=== PATIENT | male | born 1965 | race Caucasian/White ===

== ENCOUNTER 2021-07-31 06:06 | Outpatient (CLI) | payer MEDICARE ==
[~2021-07-31] VITALS: Ht 175.3 cm; Wt 105.6 kg
[2021-07-31] MEDS ORDERED: TERA5CAP10 PO (12:18)
[2021-07-31] MEDS ORDERED: CETI10CA PO (12:18)
[2021-07-31] MEDS ORDERED: OMEG-109 PO (12:18)
[2021-07-31] MEDS ORDERED: LEVE500T6 PO (12:18)
[2021-07-31] MEDS ORDERED: TRAZ150T72 PO (12:18)
[2021-07-31] MEDS ORDERED: QUET100T33 PO (12:18)
[2021-07-31] MEDS ORDERED: VITA1CAP PO (12:18)
[2021-07-31] MEDS ORDERED: MELO15TA39 PO (12:18)
[2021-07-31] MEDS ORDERED: VNL75T PO (12:18)
[2021-07-31] MEDS ORDERED: BUSP7.5T5 PO (12:18)
[2021-07-31] MEDS ORDERED: ZOLP10TA PO (12:18)
[2021-07-31] MEDS ORDERED: CHOL500050 PO (12:18)
== END 2021-07-31 13:07 | disposition home or self-care (01) ==
LOC: PREOP 06:06
PROVIDERS: ATTEND Surgery
DX: Z01.818 Encounter for other preprocedural examination (principal)

== ENCOUNTER 2021-08-08 09:22 | Day surgery (SDC) | payer MEDICARE ==
[~2021-08-08] VITALS: Ht 175.3 cm; Wt 105.6 kg
[~2021-08-08 09:22] MED LIST: BUSP7.5T5 PO; CETI10CA PO; CHOL500050 PO; LEVE500T6 PO; MELO15TA39 PO; OMEG-109 PO; QUET100T33 PO; TERA5CAP10 PO; TRAZ150T72 PO; VITA1CAP PO; VNL75T PO; ZOLP10TA PO
[2021-08-08] MEDS ORDERED: LACTATED RINGERS 1,000 ML IV ONE (09:29)
--- NOTE | 2021-08-08 09:40 | Progress Note-Pre Operative ---
Pre-Operative Progress Note H&P Reviewed The H&P was reviewed, patient examined and no changes noted. Date Seen by Provider: Aug 08, 2021 Time Seen by Provider: 09:39 Date H&P Reviewed: Aug 08, 2021 Time H&P Reviewed: 09:39 Pre-Operative Diagnosis: family history of colon cancer, hx of polyps ALOK WYNN DO Aug 08, 2021 09:40
[2021-08-08] MEDS ORDERED: LACTATED RINGERS 1,000 ML IV STA (09:41)
[2021-08-08 10:06] VITALS: BP 141/95
[2021-08-08] MEDS ORDERED: PROPOFOL INJECTION 50 ML IV ONE (11:01)
--- NOTE | 2021-08-08 11:26 | Progress Note-Post Operative ---
Post-Operative Progess Note Surgeon (s)/Auto Painter (s) Surgeon ALOK WYNN DO Auto Painter: na Pre-Operative Diagnosis family history of colon cancer, hx of polyps Post-Operative Diagnosis diverticulosis Procedure & Operative Findings Date of Procedure 08/08/21 Procedure Performed/Findings colonoscopy Anesthesia Type per spread cutter Estimated Blood Loss Estimated blood loss (mL): none Specimens/Packing Specimens Removed none ALOK WYNN DO Aug 08, 2021 11:26
--- NOTE | 2021-08-08 11:27 | Discharge Inst-Simple/Standard ---
Discharge Inst-Standard Patient Instructions/Follow Up Plan of Care/Instructions/FU: Shanti 5 years. Any issues before that be seen at that time. Activity as Tolerated: Yes Discharge Diet: Regular Diet (high fiber) ALOK WYNN DO Aug 08, 2021 11:27
[2021-08-08 11:30] VITALS: BP 124/88
[2021-08-08 11:35] VITALS: BP 136/90
[2021-08-08 12:00] VITALS: BP 130/96
[2021-08-08 12:08] VITALS: BP 130/96
--- NOTE | 2021-08-08 18:05 | OPERATIVE REPORT ---
DATE OF SERVICE: 08/08/2021 PREOPERATIVE DIAGNOSIS: History of colon polyps, family history of colon cancer. POSTOPERATIVE DIAGNOSIS: Diverticulosis. PROCEDURE: Colonoscopy. SURGEON: Alok Moser DO ANESTHESIA: Per FLORAL DESIGNER. ESTIMATED BLOOD LOSS: None. COMPLICATIONS: None. INDICATIONS: The patient is a 55-year-old male needing colonoscopy. He understands risks and benefits of procedure and wishes to proceed. Consent was signed in the chart. DESCRIPTION OF PROCEDURE: The patient was taken to the endoscopy suite, placed in left lateral recumbent position. Timeout was performed. Digital rectal exam was performed. No palpable polyps, masses or ulcerations. Scope was inserted in the rectum and advanced all the way to cecum with minimal difficulty. Prep was adequate. Scope was then slowly retracted back. No polyps, masses or ulcerations within the cecum, ascending, transverse, descending and sigmoid colon. Through the sigmoid colon, moderate amount of diverticulosis present. Scope was retroflexed in the rectum, noting no other pathology. Scope was returned to its normal position, slowly withdrawn until completely removed. The patient tolerated procedure well without any complications, taken to recovery room in stable condition. RECOMMENDATIONS: The patient will need repeat colonoscopy in 5 years. Any issues before that be seen at that time. CC: Dr. Kranthi Dixon - requested, unable to deliver Job ID: [id number] DocumentID: [id number] Dictated Date: 08/08/2021 11:29:20 Mat Inspector Date: 08/08/2021 17:23:51 Dictated By: ALOK MOSER DO
== END 2021-08-08 12:08 | disposition home or self-care (01) ==
LOC: ENDO 09:22
PROVIDERS: ATTEND Surgery
DX: Z12.11 Encounter for screening for malignant neoplasm of colon (principal); Z86.010 Personal history of colon polyps; Z80.0 Family history of malignant neoplasm of digestive organs; I10 Essential (primary) hypertension; K21.9 Gastro-esophageal reflux disease without esophagitis; E66.9 Obesity, unspecified; G47.33 Obstructive sleep apnea (adult) (pediatric); Z68.34 Body mass index [BMI] 34.0-34.9, adult; Z87.891 Personal history of nicotine dependence; Z99.89 Dependence on other enabling machines and devices

== ENCOUNTER → 2022-03-21 | Outpatient (CLI) | payer MEDICARE | LOC: CARD 08:41 | PROVIDERS: ATTEND Internal Medicine Cardiovascular Disease | DX: I51.7 Cardiomegaly (principal) | CPT/HCPCS: 93306 ==

== ENCOUNTER → 2022-03-29 | Outpatient (CLI) | payer MEDICARE ==
[~2022-03-29] MED LIST changes: +CATHETER FLUSH 10 ML SYR IVP PRN
[2022-03-29 08:54] VITALS: BP 108/76
--- NOTE | 2022-03-29 15:38 | NUCLEAR STRESS TEST ---
TREADMILL NUCLEAR STRESS TEST Date of procedure: 03/29/2022. Primary care provider: Kranthi Dixon MD. Admitting physician: Luis Lewis Jr., MD. INDICATION: Abnormal electrocardiogram. BASELINE ELECTROCARDIOGRAM: Sinus rhythm with nonspecific T wave changes in the inferior leads. STRESS TEST PROCEDURE: The patient was exercised for a total of 5 minutes and 1 seconds of the standard Barney protocol achieving a maximum MET level of 7. The resting heart rate was 60 bpm and the peak heart rate was 141 bpm, which represents 86% of the maximum predicted heart rate. The resting blood pressure was 124/81 mmHg and the peak blood pressure was 151/81 mmHg. This represents a normal heart rate and a normal blood pressure response to exercise. The test was stopped due to target heart rate attained. There was no chest discomfort during the test. There were isolated premature ventricular complexes during the test. There were no significant stress induced electrocardiogram changes. The p atient exhibited fair exercise capacity for age. NUCLEAR PROCEDURE: The patient was administered 10.4 mCi of intravenous techne tium 99m Tetrofosmin at rest for the rest images. The patient was subsequently administered 30.7 mCi of intravenous technetium 99 M Tetrofosmin at peak stress for the stress images. Following an appropriate wait after each injection, imaging was obtained. The images were subsequently processed and reformatted in the usual views. Gated imaging was obtained. The image quality was adequate with a mild degree of gastrointestinal and motion artifacts. CT attenuation correction was used as a adjunct to standard imaging. Both the corrected and uncorrected images were reviewed for interpretation. NUCLEAR RESULTS: There was a large, severe intensity, predominantly reversible mid to distal anterior and apical defect with a large amount of inducible ischemia with a summed stress score of 28 and a summed difference score of 22. There was normal left ventricular chamber size with an end-diastolic volume of 66 mL and an end-systolic volume of 15 mL. There was evidence of transient ischemic dilatation. The TID ratio was 1.28. There was normal wall motion in all segments with a calculated ejection fraction of 70%. IMPRESSION: 1. Normal heart rate and blood pressure response to exercise. 2. There was no exercise-induced chest discomfort or electrocardiogram changes. 3. There were isolated premature ventricular complexes during the test. 4. The patient exhibited fair exercise capacity for age at 5 minutes and 1 second of the Barney protocol. 5. There was a large, severe intensity, predominantly reversible mid to distal anterior and apical defect with a large amount of inducible ischemia with a summed stress score of 28 and a summed difference score of 22. 6. There was evidence of transient ischemic dilatation with a TID ratio of 1.28. 7. There was normal wall motion in all segments with a calculated ejection fraction of 70%. 8. This is an abnormal result representing an overall high risk for possible future coronary ischemic events. Certain portions of this document may have been dictated utilizing voice recogn ition technology. Inherent to this technology, typographical and grammatical errors may exist. As much as I am diligent to identify and correct these mistakes, some errors may remain in the document. LUIS LEWIS JR, MD Mar 29, 2022 15:38
== END ==
LOC: CARD 07:10
PROVIDERS: ATTEND Internal Medicine Cardiovascular Disease
DX: R94.31 Abnormal electrocardiogram [ECG] [EKG] (principal)
CPT/HCPCS: 78452; 93017; A9502

== ENCOUNTER → 2022-04-02 | Outpatient (CLI) | payer MEDICARE ==
[~2022-04-02] MED LIST changes: -CATHETER FLUSH 10 ML SYR IVP PRN
[2022-04-02 08:07] LABS: CALCIUM 9.2 MG/DL (8.5-10.1); CREATININE SERUM 1.22 MG/DL (0.60-1.30); POTASSIUM 4.3 MMOL/L (3.6-5.0)
== END ==
LOC: LAB 07:19
PROVIDERS: ATTEND Internal Medicine Cardiovascular Disease
DX: R94.39 Abnormal result of other cardiovascular function study (principal)
CPT/HCPCS: 36415; 80048

== ENCOUNTER → 2022-04-03 | Outpatient (CLI) | payer MEDICARE ==
[~2022-04-03] MED LIST changes: +ASPI-1238 PO; +CLOP75TA28 PO; +LOSA50TA63 PO; +METO50TA7 PO; +NITR0.4T42 SL; +PANT40TA52 PO; +ROSU20TA32 PO; +TOPI25TA10 PO
--- NOTE | 2022-04-03 17:54 | Diagnostic Imaging Report ---
EXAMINATION: Abdomen 1 view HISTORY: FLANK PAIN COMPARISON: None available. FINDINGS: There is a moderate amount of gas and stool throughout the colon. Nonobstructive bowel gas pattern. There is a 0.4 cm opacity overlying the location of the right kidney which could represent a stone. The lung bases are clear. The osseous structures are intact. IMPRESSION: 1. Moderate stool burden without other acute abnormality in the abdomen. 2. Possible 0.4 cm right renal calculus. Dictated by: Dictated on workstation # [id number]
== END ==
LOC: RAD 13:33
PROVIDERS: ATTEND Family Medicine
DX: R10.9 Unspecified abdominal pain (principal)
CPT/HCPCS: 74018

== ENCOUNTER 2022-04-05 08:00 | Day surgery (SDC) | payer MEDICARE ==
[2022-04-02 14:01] LABS: BASOPHILS % (AUTO) 1 % (0-10); EOSINOPHILS % (AUTO) 1 % (0-10); HEMATOCRIT 43 % (40-54); HEMOGLOBIN 14.6 g/dL (13.3-17.7); LYMPHOCYTES # (AUTO) 1.3 10^3/uL (1.0-4.0); LYMPHOCYTES % (AUTO) 17 % (12-44); MEAN CORPUSCULAR HEMOGLOBIN 29 pg (25-34); MEAN CORPUSCULAR HGB CONC 34 g/dL (32-36); MEAN CORPUSCULAR VOLUME 86 fL (80-99); MONOCYTES # (AUTO) 0.6 10^3/uL (0.0-1.0); MONOCYTES % (AUTO) 7 % (0-12); NEUTROPHILS % (AUTO) 75 % (42-75); PLATELET COUNT 200 10^3/uL (130-400)
[2022-04-02 14:28] LABS: PROTHROMBIN TIME PATIENT 13.9 SEC (12.2-14.7)
[~2022-04-05 08:00] MED LIST changes: -ASPI-1238 PO; -CLOP75TA28 PO; -LOSA50TA63 PO; -METO50TA7 PO; -NITR0.4T42 SL; -PANT40TA52 PO; -ROSU20TA32 PO; -TOPI25TA10 PO
[2022-04-05] MEDS ORDERED: ASPIRIN 81 MG CHEW (CHILDREN'S ASA) PO ONE (09:15)
[2022-04-05] MEDS ORDERED: NS IV 1000 ML 1,000 ML IV ONE (09:15)
[2022-04-05] MEDS ORDERED: CATHETER FLUSH 10 ML SYR IV PRN (09:15)
[2022-04-05] MEDS ORDERED: HEParin (CATH LAB) 2,000 ML IV ONE (09:15)
[2022-04-05] MEDS ORDERED: LIDOCAINE 1% INJ 30 ML (XYLOCAINE) VIAL ONE (09:15)
[2022-04-05 09:34] VITALS: BP 127/77
[2022-04-05] MEDS ORDERED: ASPI-1238 PO (09:56)
[2022-04-05] MEDS ORDERED: ROSU20TA32 PO (09:56)
[2022-04-05] MEDS ORDERED: TOPI25TA10 PO (09:56)
[2022-04-05] MEDS ORDERED: PANT40TA52 PO (09:56)
[2022-04-05] MEDS ORDERED: LOSA50TA63 PO (09:56)
[2022-04-05] MEDS ORDERED: VERAPAMIL 5 MG/2 ML (CALAN) VIAL IV ONE (10:02)
[2022-04-05] MEDS ORDERED: fentaNYL INJ 100 MCG/2 ML AMP ONE (10:03)
[2022-04-05] MEDS ORDERED: NITRO DRIP 25000 MCG/D5W 250 ML IV ONE (10:03)
[2022-04-05] MEDS ORDERED: MIDAZOLAM 2 MG/2 ML (VERSED) VIAL ONE (10:03)
[2022-04-05] MEDS ORDERED: HEParin 1000 UNIT/ML (10ML VIAL) FOR BOLUS ONE (10:03)
--- NOTE | 2022-04-05 10:05 | Pre-Op Note & Conscious Sedat ---
Pre-Operative Progress Note Date H&P Reviewed: Apr 05, 2022 Time H&P Reviewed: 10:04 History & Physical: H&P Reviewed, Patient Examed, No changes noted Changes from last HP Nuclear stress test showed large anterior ischemic defect. He is now here for cardiac catheterization. Pre-Op Diagnosis: Abnormal nuclear stress test Conscious Sedation Pre-Proced ASA Score 2 For ASA 3 and 4: Consider anesthesia and medical clearance. Also, for patients with a history of failed moderate sedation consider anesthesia. Airway Lungs Heart ASA score ASA 1: a normal healthy patient ASA 2: a patient with a mild systemic disease (mid diabetes, controlled hypertension, obesity ASA 3: a patient with a severe systemic disease that limits activity (angina, COPD, prior Myocardial infarction) ASA 4: a patient with an incapacitating disease that is a constant threat to life (CHF, renal failure) ASA 5: a moribund patient not expected to survive 24 hrs. (ruptured aneurysm) ASA 6: a declared brain- patient whose organs are being harvested. For emergent operations, add the letter E after the classification Mallampati Classification Grade 2 Sedation Plan Analgesia, Amnesia, Plan communicated to team members, Discussed options with patient/fam, Discussed risks with patient/fam The patient is an appropriate candidate to undergo the planned procedure, sedation, and anesthesia. The patient immediately re-assessed prior to indication. Given his current clinical status, he is considered vulnerable. He has no history of heart failure. RJ RODRÍGUEZ JR, MD Apr 05, 2022 10:05
[2022-04-05] MEDS ORDERED: NS IV 1000 ML 1,000 ML ONE (11:15)
[2022-04-05] MEDS ORDERED: CLOPIDOGREL 300 MG (PLAVIX) TABLET PO ONE (11:15)
[2022-04-05] MEDS ORDERED: ONDANSETRON 4 MG/2 ML (SDV) Z0FRAN ONE (11:37)
[2022-04-05] MEDS ORDERED: NS IV 1000 ML 300 ML IV SCH (11:45)
--- NOTE | 2022-04-05 11:46 | Cardiac Cath Report ---
CARDIAC CATHETERIZATION DATE OF PROCEDURE: 04/05/2022 INDICATION: Abnormal nuclear stress test and angina pectoris. HISTORY: The patient is a 56 year old male with no previously known history of coronary artery disease who recently started developing chest discomfort concerning for angina pectoris. He was evaluated with an outpatient nuclear stress test that showed a large, severe intensity, predominantly reversible mid to distal anterior and apical defect with a large amount of inducible ischemia with a summed stress score of 28 and a summed difference score of 22. This is considered a high risk result. I asked patient to start taking a beta-shawna and he is now referred for further evaluation with a cardiac catheterization. H is most recent episode of chest discomfort was 2-3 days ago. Given his current clinical status, he is considered mildly frail. He does not have any history of heart failure. PROCEDURES PERFORMED: 1. Left heart catheterization with hemodynamic measurements. 2. Diagnostic gambell coronary angiography. 3. Drug-eluting stent placement to the mid left anterior descending coronary artery. PROCEDURE DESCRIPTION: After informed consent and in the fasting state, left heart catheterization was performed through the right radial artery utilizing a 6 Yemeni system by percutaneous approach. Standard 5 Yemeni Milagros catheters were utilized for the diagnostic portion of the procedure. A 6 Yemeni CLS 3.5 guide catheter was utilized for the percutaneous coronary intervention. All catheters were exchanged over a guidewire. Following the procedure, a vascular band was applied to the radial artery access site and the sheath was removed with good hemostasis. RESULTS: HEMODYNAMICS: The aortic pressure was 97/58 mmHg. The left ventricular pressure was 95/0 mmHg with a left ventricular end-diastolic pressure of 8 mmHg. There was no significant pressure gradient upon pullback across aortic valve. CORONARY ANGIOGRAPHY: Left main coronary artery: Free of significant disease. Left anterior descending coronary artery: There was a 99% stenosis in the midportion of the vessel just distal to a large diagonal branch with MARCELINO-1 flow beyond the lesion. There were 2 sequential 50% stenoses in the distal segment. Left circumflex coronary artery: Dominant and the first large obtuse marginal branch contained a 30% stenosis proximally with MARCELINO-3 flow. Ramus intermedius branch: There was a small ramus intermedius branch which contained an eccentric, hazy 50% stenosis in the ostium with MARCELINO-3 flow. Right coronary artery: Nondominant and free of significant disease although there was some probable catheter induced spasm in the ostium. PERCUTANEOUS CORONARY INTERVENTION: Percutaneous coronary intervention was carried out on the mid left anterior descending coronary artery through a 6 Yemeni CLS 3.5 guide catheter. The lesion was successfully crossed with a Prowater guidewire. I subsequently performed coronary angioplasty with a 3 x 20 mm Trek balloon at a pressure of 10 german for several inflations. Flow was restored. I subsequently deployed a 3.5 x 28 mm drug-eluting Xience Skypoint stent at a pressure of 16 german. Following stent placement, there was 0% residual stenosis with MARCELINO-3 flow. IMPRESSION: 1. Normal left heart pressures. 2. There was severe disease of the mid left anterior descending coronary artery. This correlates to the ischemia on his stress test. 3. Status post drug-eluting stent placement to the mid left anterior descending coronary artery with a 3.5 x 28 mm Xience Skypoint stent with 0% residual stenosis and MARCELINO-3 flow. 4. The patient is known to have normal left ventricular systolic function with a calculated ejection fraction of 70% by nuclear stress test that was performed on 03/29/2022. Certain portions of this document may have been dictated utilizing voice recognition technology. Inherent to this technology, typographical and grammatical errors may exist. As much as I am diligent to identify and correct these mistakes, some errors may remain in the document. RJ RODRÍGUEZ JR, MD Apr 05, 2022 11:46
[2022-04-05] MEDS ORDERED: CLOP75TA28 PO (11:52)
[2022-04-05] MEDS ORDERED: METO50TA7 PO (11:53)
[2022-04-05] MEDS ORDERED: oxyCODONE/APAP 10/325MG (PERCOCET 10) TABLET PO PRN (12:00)
[2022-04-05] MEDS ORDERED: NITR0.4T42 SL (12:06)
[2022-04-05 12:15] VITALS: BP 100/58
[2022-04-05 15:00] VITALS: BP 124/68
[2022-04-05 17:17] VITALS: BP 124/68
[2022-04-06] MEDS ORDERED: CLOPIDOGREL 75 MG (PLAVIX) TABLET PO SCH (09:00)
== END 2022-04-05 16:05 | disposition home or self-care (01) ==
LOC: CATH 08:00 → ICU 12:28 → CATH 16:05
PROVIDERS: ATTEND Internal Medicine Cardiovascular Disease
DX: I25.119 Atherosclerotic heart disease of native coronary artery with unspecified angina pectoris (principal); Z79.899 Other long term (current) drug therapy; E66.9 Obesity, unspecified; Z87.891 Personal history of nicotine dependence; I10 Essential (primary) hypertension; E78.2 Mixed hyperlipidemia; G40.909 Epilepsy, unspecified, not intractable, without status epilepticus; G47.33 Obstructive sleep apnea (adult) (pediatric); Z85.89 Personal history of malignant neoplasm of other organs and systems
CPT/HCPCS: 85025; 85610; 87081; 93458; C1725; C1769; C1874; C1887; C1894; C9600; 36415

== ENCOUNTER → 2022-05-02 | Outpatient (CLI) | payer MEDICARE ==
[~2022-05-02] MED LIST changes: +ASPI-1238 PO; +CLOP75TA28 PO; +LOSA50TA63 PO; +METO50TA7 PO; +NITR0.4T42 SL; +PANT40TA52 PO; +ROSU20TA32 PO; +TOPI25TA10 PO
--- NOTE | 2022-05-02 13:35 | Diagnostic Imaging Report ---
INDICATION: Right flank pain, hematuria, history of stones. TECHNIQUE: Multiple contiguous axial images were obtained through the abdomen and pelvis without the use of intravenous contrast. Auto Exposure Controls were utilized during the CT exam to meet ALARA standards for radiation dose reduction. There is no prior CT for comparison. The visualized portions of the lung bases are clear. There were no pleural fluid collections. There is no free intraperitoneal air. There are postoperative changes in thoracic spine, partially visualized. The liver shows tiny cyst superiorly but no discrete lesion otherwise. Gallbladder appears contracted but otherwise normal. The spleen, adrenals, and pancreas appear normal. Right kidney shows an exophytic cyst superiorly measuring about 3.1 cm. There is additional right-sided cyst in the midpole measuring about 2.3 cm, as well as a couple smaller cysts. There are nonocclusive stones in the lower pole of the right kidney, the largest measured about 4 mm. The left kidney shows an exophytic cyst superiorly. There are no overt left-sided renal calculi. There is no retroperitoneal mass or adenopathy. There is no ascites or abnormal fluid collection There are uncomplicated sigmoid diverticuli. There is no pelvic mass or lymphadenopathy. IMPRESSION: There are nonocclusive stones in the right kidney, with maximal stone diameter of 4 mm. There is no ureteral stone or hydronephrosis. There are no left-sided renal calculi visualized. There are multiple cysts in each kidney. No acute finding is seen otherwise. Dictated by: Dictated on workstation # [id number]
== END ==
LOC: RAD 13:15
PROVIDERS: ATTEND Urology
DX: N20.0 Calculus of kidney (principal); N28.1 Cyst of kidney, acquired
CPT/HCPCS: 74176

== ENCOUNTER → 2022-05-04 | Outpatient (CLI) | payer MEDICARE | LOC: CARD 13:29 | PROVIDERS: ATTEND Internal Medicine Cardiovascular Disease | DX: Z53.9 Procedure and treatment not carried out, unspecified reason (principal) ==

== ENCOUNTER → 2022-05-07 | Outpatient (CLI) | payer MEDICARE ==
--- NOTE | 2022-05-07 17:10 | Diagnostic Imaging Report ---
INDICATION: Right flank pain KUB at 3:04 PM FINDINGS: There is a 3 mm calculus projecting over the lower pole of the right kidney. Bowel gas pattern is normal. There are no pathologic masses seen. IMPRESSION: Suspect right nephrolithiasis. Dictated by: Dictated on workstation # [id number]
== END ==
LOC: RAD 14:45
PROVIDERS: ATTEND Urology
DX: R10.9 Unspecified abdominal pain (principal)
CPT/HCPCS: 74018

== ENCOUNTER → 2022-05-14 | Outpatient (RCR) | payer MEDICARE | END | disposition home or self-care (01) | LOC: CR 05-07 08:51 | PROVIDERS: ATTEND Internal Medicine Cardiovascular Disease | DX: Z29.8 Encounter for other specified prophylactic measures (principal); I25.118 Atherosclerotic heart disease of native coronary artery with other forms of angina pectoris; Z95.5 Presence of coronary angioplasty implant and graft | CPT/HCPCS: 93798 ==

== ENCOUNTER 2022-06-06 09:34 | Outpatient (RCR) | payer MEDICARE | END 2022-06-13 | disposition home or self-care (01) | LOC: CR 09:34 | PROVIDERS: ATTEND Internal Medicine Cardiovascular Disease | DX: Z29.8 Encounter for other specified prophylactic measures (principal); I25.118 Atherosclerotic heart disease of native coronary artery with other forms of angina pectoris; Z95.5 Presence of coronary angioplasty implant and graft | CPT/HCPCS: 93798 ==

== ENCOUNTER → 2022-08-23 | Outpatient (CLI) | payer MEDICARE ==
--- NOTE | 2022-08-23 11:13 | Diagnostic Imaging Report ---
CLINICAL HISTORY: Right rib pain. History of cancer. No known injury. COMPARISON: None. TECHNIQUE: 3 views of the right ribs. FINDINGS: No acute displaced right-sided rib fractures are seen. No focal osseous lesions. The included right chest is clear. IMPRESSION: 1. No acute displaced right-sided rib fractures. If indicated, CT could be performed to further evaluate. Dictated by: Dictated on workstation # [id number]
--- NOTE | 2022-08-23 14:06 | Diagnostic Imaging Report ---
INDICATION: Thoracic and rib pain. AP, lateral and swimmer's views of thoracic spine are obtained. Posterior bi-pedicular fixation rods extend from T7 to T9. There is mild anterior wedging of T7. There is also anterior fusion in the lower cervical spine with C5-C6 and C6-C7 discectomies. No definite acute fracture is seen and there is no evidence paraspinous lesion. IMPRESSION: Cervical and thoracic effusions without evidence of complication or acute abnormality. Dictated by: Dictated on workstation # [id number]
== END ==
LOC: RAD 08:46
PROVIDERS: ATTEND Family Medicine
DX: J90 Pleural effusion, not elsewhere classified (principal)
CPT/HCPCS: 71100; 72072

== ENCOUNTER → 2022-09-05 | Outpatient (CLI) | payer MEDICARE ==
[~2022-09-05] MED LIST changes: +GADOTERATE 0.5 MMOL/ML (CLARISCAN) 20 ML VIAL IV ONE
--- NOTE | 2022-09-05 16:20 | Diagnostic Imaging Report ---
TECHNIQUE: Multiplanar multisequence MRI of the thoracic spine was performed with and without contrast. REASON FOR EXAM: Back pain. History of osteosarcoma. COMPARISON: 08/23/2022. FINDINGS: No acute fracture is seen in the thoracic spine. Posterior fusion changes are visualized at T7-T9. Laminectomy is noted at T8. No evidence of enhancing mass at the T8 level. No focal osseous lesions are seen. There is chronic height loss in the T3-T5 vertebral bodies and T7 vertebral body. The thoracic spinal cord demonstrates normal intrinsic signal. No evidence of cord expansion. No epidural collections. No enhancing masses are seen within the spinal canal. No high-grade spinal canal or foraminal stenosis. No large disc bulges. The paraspinal soft tissues are unremarkable. The included lungs are clear. IMPRESSION: 1. Postsurgical changes of posterior fusion at T7-T9 and laminectomy at T8. No enhancing mass is seen in this area. Recommend continued follow-up as indicated. 2. No acute fracture or dislocation in the thoracic spine. No high-grade spinal canal or foraminal stenosis. Dictated by: Dictated on workstation # [id number]
== END ==
LOC: RAD 13:15
PROVIDERS: ATTEND Family Medicine
DX: M54.14 Radiculopathy, thoracic region (principal); Z85.830 Personal history of malignant neoplasm of bone; Z98.890 Other specified postprocedural states
CPT/HCPCS: 72157

== ENCOUNTER 2022-09-12 19:25 | Outpatient (CLI) | payer MEDICARE ==
[~2022-09-12 19:25] MED LIST changes: -GADOTERATE 0.5 MMOL/ML (CLARISCAN) 20 ML VIAL IV ONE
== END 2022-09-13 05:45 | disposition home or self-care (01) ==
LOC: SLEEP 19:25
PROVIDERS: ATTEND Family Medicine
DX: G47.33 Obstructive sleep apnea (adult) (pediatric) (principal); I10 Essential (primary) hypertension
CPT/HCPCS: 95811

== ENCOUNTER → 2023-02-18 | Outpatient (CLI) | payer MEDICARE ==
[~2023-02-18] MED LIST changes: -ROSU20TA32 PO; +ROSU20TA73 PO
== END ==
LOC: CARD 13:35
PROVIDERS: ATTEND Internal Medicine Cardiovascular Disease
DX: I10 Essential (primary) hypertension (principal); I25.10 Atherosclerotic heart disease of native coronary artery without angina pectoris
CPT/HCPCS: 93306

== ENCOUNTER 2023-02-23 15:54 | Emergency (ER) | payer MEDICARE ==
[~2023-02-23] VITALS: Ht 172.7 cm; Wt 118.0 kg
[2023-02-23] MEDS ORDERED: LIDOCAINE UROJET 2% GEL 10 ML PKG TOP ONE (16:15)
--- NOTE | 2023-02-23 16:24 | ED GU-Male ---
General Stated Complaint: UNABLE TO URINATE AFTER PROSTATE SURGERY Source: patient Exam Limitations: no limitations History of Present Illness Date Seen by Provider: Feb 23, 2023 Time Seen by Provider: 16:03 Initial Comments Report of inability to urinate. Patient had laser transurethral procedure yesterday. States he was able to urinate after the procedure but got home last night and has not really been able to urinate since. Reports that he has had only occasional dribbles of and now is feeling more and more distended. He was instructed by his urologist to go to the emergency department to seek catheter if he was unable to urinate. Denies fever or chills but does have some nausea is the discomfort has increased. Denies urinary blood. Timing/Duration: yesterday, getting worse Severity/Quality: moderate, aching Location: suprapubic Radiation: right flank, left flank Activities at Onset: none Modifying Factors: Improves With Urinating Associated Symptoms: abdominal pain; No fever/chills; nausea/vomiting; No urinary frequency Allergies and Home Medications Allergies Coded Allergies: lisinopril (Verified Allergy, Mild, 04/05/22) coughing Patient Home Medication List Home Medication List Reviewed: Yes Aspirin (Aspirin EC) 81 Mg Tablet.dr, 81 MG PO DAILY, (Reported) Entered as Reported by: ROSI BELLE on 04/05/22 0956 Cholecalciferol (Vitamin D3) (Vitamin D3) 125 Mcg Capsule, 125 MCG PO DAILY, (Reported) Entered as Reported by: THADDEUS GARCIA on 07/31/21 1218 Clopidogrel Bisulfate (Clopidogrel) 75 Mg Tablet, 75 MG PO DAILY Prescribed by: RJ RODRÍGUEZ JR, MD on 04/05/22 1152 Levetiracetam (Levetiracetam) 500 Mg Tablet, 500 MG PO BID, (Reported) Entered as Reported by: THADDEUS GARCIA on 07/31/21 1218 Losartan Potassium (Losartan Potassium) 50 Mg Tablet, 50 MG PO DAILY, (Reported) Entered as Reported by: ROSI BELLE on 04/05/22 0956 Meloxicam (Meloxicam) 15 Mg Tablet, 15 MG PO DAILY, (Reported) Entered as Reported by: THADDEUS GARCIA on 07/31/21 1218 Metoprolol Succinate (Metoprolol Succinate) 50 Mg Tab.er.24h, 50 MG PO DAILY Prescribed by: RJ RODRÍGUEZ JR, MD on 04/05/22 1153 Nitroglycerin (Nitroglycerin) 0.4 Mg Tab.subl, 0.4 MG SL PRN PRN for CHEST PAIN (ANGINA) Prescribed by: RJ RODRÍGUEZ JR, MD on 04/05/22 1206 Pantoprazole Sodium (Pantoprazole Sodium) 40 Mg Tablet.dr, 40 MG PO DAILY, (Reported) Entered as Reported by: ROSI BELLE on 04/05/22 0956 Rosuvastatin Calcium (Rosuvastatin Calcium) 20 Mg Tablet, 20 MG PO DAILY, (Reported) Entered as Reported by: ROSI BELLE on 04/05/22 0956 Terazosin HCl (Terazosin HCl) 5 Mg Capsule, 5 MG PO BID, (Reported) Entered as Reported by: THADDEUS GARCIA on 07/31/21 121 Topiramate (Topiramate) 25 Mg Tablet, 25 MG PO BID, (Reported) Entered as Reported by: ROSI BELLE on 04/05/22 0956 Trazodone HCl (Trazodone HCl) 150 Mg Tablet, 150 MG PO HS, (Reported) Entered as Reported by: THADDEUS GARCIA on 07/31/21 121 Zolpidem Tartrate (Ambien) 10 Mg Tablet, 10 MG PO HS, (Reported) Entered as Reported by: THADDEUS GARCIA on 07/31/21 1218 Review of Systems Review of Systems Constitutional: see HPI; No chills, No fever Respiratory: no symptoms reported Cardiovascular: no symptoms reported Gastrointestinal: see HPI, nausea Genitourinary: see HPI Psychiatric/Neurological: No Symptoms Reported Past [id number]-Spjmwd Hx Patient Social History Tobacco Use?: No Immunizations Up To Date First/Initial COVID19 Vaccinat: SEPTEMBER 27, 2020 Second COVID19 Vaccination Ralph: OCTOBER 28, 2020 Seasonal Allergies Seasonal Allergies: No Past Medical History Surgeries: Yes Nose, Orthopedic Respiratory: Yes Sleep Apnea Currently Using CPAP: No Cardiac: Yes Heart Murmur, High Cholesterol, Hypertension Neurological: No Seizure Disorder Genitourinary: No Prostate Problems, Kidney Stones Gastrointestinal: No Diverticulosis Musculoskeletal: No Endocrine: No HEENT: No Cancer: Yes (SPINAL CANCER) Bone Psychosocial: No Integumentary: No Blood Disorders: No Family Medical History Reviewed Nursing Family Hx Colorectal cancer Physical Exam Vital Signs Vital Signs - First Documented 02/23/23 15:58 Temp 37.6 Pulse 66 Resp 16 B/P (MAP) 182/95 (124) Pulse Ox 96 Capillary Refill : Height, Weight, BMI Height: '" Weight: lbs. oz. kg; 34.36 BMI Method: General Appearance: WD/WN, no apparent distress Cardiovascular: regular rate, rhythm, no murmur Respiratory: lungs clear, normal breath sounds Gastrointestinal: soft, tenderness (Suprapubic) Back: normal inspection, no CVA tenderness, no vertebral tenderness Neurologic/Psychiatric: alert, oriented x 3 Skin: normal color, warm/dry Progress/Results/Core Measures Suspected Sepsis SIRS Temperature: Pulse: Respiratory Rate: Blood Pressure / Mean: Results/Orders Lab Results Laboratory Tests Test 02/23/23 16:36 Range/Units Urine Color ORANGE Urine Clarity CLOUDY Urine pH 5.0 5-9 Urine Specific [place] 1.015 L 1.016-1.022 Urine Protein 2+ H NEGATIVE Urine Glucose (UA) TRACE H NEGATIVE Urine Ketones NEGATIVE NEGATIVE Urine Nitrite POSITIVE H NEGATIVE Urine Bilirubin NEGATIVE NEGATIVE Urine Urobilinogen 1.0 < = 1.0 MG/DL Urine Leukocyte Esterase NEGATIVE NEGATIVE Urine RBC (Auto) 3+ H NEGATIVE Urine RBC >100 H /HPF Urine WBC 2-5 /HPF Urine Squamous Epithelial Cells RARE /HPF Urine Crystals NONE /LPF Urine Bacteria TRACE /HPF Urine Casts NONE /LPF Urine Mucus NEGATIVE /LPF Urine Culture Indicated YES My Orders Orders - HAKAN MCENIL MD Catheter(Urinary) Insert & Ass 15 (02/23/23 16:15) Lidocaine 2% (Urojet) (Lidocaine 2% (Uro (02/23/23 16:15) Medications Given in ED Current Medications Medications Dose Ordered Sig/Sasha Route Start Time Stop Time Status Last Admin Dose Admin Lidocaine HCl 10 ml ONCE ONCE TOP 02/23/23 16:15 02/23/23 16:16 DC 02/23/23 16:22 10 ML Vital Signs/I&O 02/23/23 15:58 Temp 37.6 Pulse 66 Resp 16 B/P (MAP) 182/95 (124) Pulse Ox 96 Capillary Refill : Progress Note : Progress Note Seen and evaluated. Patient has obvious distention of the bladder noted on physical exam. Nursing will get bladder scan but we will proceed with Gutierrez catheter due to inability to urinate. We will check UA. Monitor patient. 165: Patient is feeling much improved. He had a little over 500 noted on bladder scan and this was what was relieved with Gutierrez catheter. UA is nitrate positive indicating possible urinary tract infection. Given his recent procedure, we will go ahead and initiate cephalexin. He will pick that up outpatient. We will try to get the culture results sent to Dr. Gillespie, patient's urologist in [place]. Discharged home with return precautions. Patient verbalized understanding of instructions and agreement with plan. Departure Impression Primary Impression: Urinary retention Additional Impression: Urinary tract infection Qualified Codes: N30.00 - Acute cystitis without hematuria Disposition: HOME, SELF-CARE Condition: Improved Departure-Patient Inst. Decision time for Depature: 16:57 Referrals: CECIL FLANNERY MD (PCP/Family) Primary Care Physician Patient Instructions: Urinary Tract Infection, Adult (DC), Urinary Retention Add. Discharge Instructions: It is very important that you call your urologist office on Saturday morning and let him know that you were seen here today and there is concern for urinary tract infection that is nitrite positive. Cultures are pending and we will try to get those sent to his office but he can also follow-up with the lab here as well. Let him know that you had the Gutierrez catheter placed and he will give you instructions for further care of that. Return for worse pain, fever, vomiting, weakness, breathing problems or other concerns as needed. Scripts Cephalexin (Cephalexin) 500 Mg Capsule 500 MG PO BID for 7 Days, #14 CAP 0 Refills Prov: HAKAN MCNEIL MD 02/23/23 Copy Copies To 1: CECIL FLANNERY MD, TIMOTHY D MD Feb 23, 2023 16:24
[2023-02-23 16:46] LABS: CLARITY,URINE CLOUDY; COLOR,URINE ORANGE
[2023-02-23 16:47] LABS: BACTERIA,URINE TRACE /HPF; BILIRUBIN,URINE NEGATIVE (NEGATIVE); GLUCOSE, URINE (UA) TRACE (NEGATIVE); KETONES,URINE NEGATIVE (NEGATIVE); LEUKOCYTE ESTERASE ,URINE NEGATIVE (NEGATIVE); NITRITE,URINE POSITIVE (NEGATIVE); PROTEIN,URINE 2+ (NEGATIVE); RBC,URINE >100 /HPF; SQUAMOUS EPITHELIAL CELL,UR RARE /HPF
[2023-02-23] MEDS ORDERED: CEPH500C PO (16:59)
[2023-02-23 17:14] VITALS: BP 157/89
== END 2023-02-23 17:14 | disposition home or self-care (01) ==
LOC: EDUNIT# 15:54 → ER 15:56
DX: N39.0 Urinary tract infection, site not specified (principal); Z87.442 Personal history of urinary calculi; Z98.890 Other specified postprocedural states
CPT/HCPCS: 51702; 81000; 87088

== ENCOUNTER 2023-05-25 06:14 | Emergency (ER) | payer MEDICARE ==
[~2023-05-25] VITALS: Ht 172.7 cm; Wt 122.0 kg
[~2023-05-25 06:14] MED LIST changes: +CEPH500C PO
[2023-05-25] MEDS ORDERED: KETOROLAC INJ 30 MG/ML VIAL IVP STA (06:38)
[2023-05-25 06:45] LABS: BASOPHILS % (AUTO) 1 % (0-10); EOSINOPHILS # (AUTO) 0.1 10^3/uL (0.0-0.3); EOSINOPHILS % (AUTO) 1 % (0-10); HEMATOCRIT 46 % (40-54); HEMOGLOBIN 15.6 g/dL (13.3-17.7); LYMPHOCYTES # (AUTO) 2.1 10^3/uL (1.0-4.0); LYMPHOCYTES % (AUTO) 29 % (12-44); MEAN CORPUSCULAR HEMOGLOBIN 30 pg (25-34); MEAN CORPUSCULAR HGB CONC 34 g/dL (32-36); MEAN CORPUSCULAR VOLUME 88 fL (80-99); MEAN PLATELET VOLUME 9.5 fL (9.0-12.2); MONOCYTES # (AUTO) 0.4 10^3/uL (0.0-1.0); MONOCYTES % (AUTO) 5 % (0-12); NEUTROPHILS # (AUTO) 4.5 10^3/uL (1.8-7.8); NEUTROPHILS % (AUTO) 63 % (42-75); PLATELET COUNT 242 10^3/uL (130-400); WHITE BLOOD COUNT 7.1 10^3/uL (4.3-11.0)
[2023-05-25] MEDS ORDERED: NS IV 1000 ML 1,000 ML IV ONE (06:45)
[2023-05-25] MEDS ORDERED: ONDANSETRON INJECTION 4 MG/2 ML (SDV) IVP ONE (06:45)
[2023-05-25 06:50] LABS: ALBUMIN 4.5 GM/DL (3.2-4.5); POTASSIUM 3.8 MMOL/L (3.6-5.0)
--- NOTE | 2023-05-25 06:51 | ED GU-Male ---
General Chief Complaint: - Reproductive Stated Complaint: KIDNEY STONE,RT SIDE Nursing Triage Note: Pt presents c/o R flank pain that started at approx 0300 this morning. Pt reports hx of kidney stones, he's had vomiting and pain. Source: patient Exam Limitations: no limitations History of Present Illness Date Seen by Provider: May 25, 2023 Time Seen by Provider: 06:25 Initial Comments Here with report of feeling competent that he has a kidney stone on the right. Started having some flank pain on the right side on . States he got up to urinate at about 3 AM this morning and started having pain afterwards. He states now he has right flank pain that radiates to the right testicle. Denies urine in his bladder or stool but states his urine is dark. He follows with Dr. Gillespie in [place] and has appointment on the . Denies fever but does have some chills and reports he has had some nausea and vomiting. He has had history of stones before that required lithotripsy previously. Timing/Duration: getting worse, other (3 days) Severity/Quality: moderate, aching Location: right flank Radiation: scrotal (Right) Activities at Onset: none Modifying Factors: Improves With Other (No aggravating or relieving factors) Associated Symptoms: No dysuria; nausea/vomiting; No urinary frequency Allergies and Home Medications Allergies Coded Allergies: lisinopril (Verified Allergy, Mild, 04/05/22) coughing Patient Home Medication List Home Medication List Reviewed: Yes Aspirin (Aspirin EC) 81 Mg Tablet.dr, 81 MG PO DAILY, (Reported) Entered as Reported by: ROSI BELLE on 04/05/22 0956 Cephalexin (Cephalexin) 500 Mg Capsule, 500 MG PO BID Prescribed by: HAKAN MCNEIL on 02/23/23 1659 Cephalexin (Cephalexin) 500 Mg Capsule, 500 MG PO BID Prescribed by: HAKAN MCNEIL on 05/25/23 0725 Cholecalciferol (Vitamin D3) (Vitamin D3) 125 Mcg Capsule, 125 MCG PO DAILY, (Reported) Entered as Reported by: THADDEUS GARCIA on 07/31/21 1218 Clopidogrel Bisulfate (Clopidogrel) 75 Mg Tablet, 75 MG PO DAILY Prescribed by: RJ RODRÍGUEZ JR, MD on 04/05/22 1152 Hydrocodone/Acetaminophen (Hydrocodone-Acetamin 5-325 mg) 5 Mg-325 Mg Tablet, 1 TAB PO Q6H PRN for PAIN-MODERATE (5-7) Prescribed by: HAKAN MCNEIL on 05/25/23 07 Levetiracetam (Levetiracetam) 500 Mg Tablet, 500 MG PO BID, (Reported) Entered as Reported by: THADDEUS GARCIA on 07/31/21 121 Losartan Potassium (Losartan Potassium) 50 Mg Tablet, 50 MG PO DAILY, (Reported) Entered as Reported by: ROSI BELLE on 04/05/22 09 Meloxicam (Meloxicam) 15 Mg Tablet, 15 MG PO DAILY, (Reported) Entered as Reported by: THADDEUS GARCIA on 07/31/21 121 Metoprolol Succinate (Metoprolol Succinate) 50 Mg Tab.er.24h, 50 MG PO DAILY Prescribed by: RJ RODRÍGUEZ JR, MD on 04/05/22 1153 Nitroglycerin (Nitroglycerin) 0.4 Mg Tab.subl, 0.4 MG SL PRN PRN for CHEST PAIN (ANGINA) Prescribed by: RJ RODRÍGUEZ JR, MD on 04/05/22 1206 Ondansetron (Ondansetron Odt) 4 Mg Tab.rapdis, 4 MG PO Q6H PRN for NAUSEA/VOMITI NG Prescribed by: HAKAN MCNEIL on 05/25/23724 Pantoprazole Sodium (Pantoprazole Sodium) 40 Mg Tablet.dr, 40 MG PO DAILY, (Reported) Entered as Reported by: ROSI BELLE on 04/05/22955 Rosuvastatin Calcium (Rosuvastatin Calcium) 20 Mg Tablet, 20 MG PO DAILY, (Reported) Entered as Reported by: ROSI BELLE on 04/05/22 09 Terazosin HCl (Terazosin HCl) 5 Mg Capsule, 5 MG PO BID, (Reported) Entered as Reported by: THADDEUS GARCIA on 07/31/21 121 Topiramate (Topiramate) 25 Mg Tablet, 25 MG PO BID, (Reported) Entered as Reported by: ROSI BELLE on 04/05/22 09 Trazodone HCl (Trazodone HCl) 150 Mg Tablet, 150 MG PO HS, (Reported) Entered as Reported by: THADDEUS GARCIA on 07/31/21 1218 Zolpidem Tartrate (Ambien) 10 Mg Tablet, 10 MG PO HS, (Reported) Entered as Reported by: THADDEUS GARCIA on 07/31/21 1218 Review of Systems Review of Systems Constitutional: see HPI, chills; No fever EENTM: no symptoms reported Respiratory: No cough, No short of breath Cardiovascular: no symptoms reported Gastrointestinal: see HPI, nausea, vomiting Genitourinary: denies dysuria; flank pain Musculoskeletal: no symptoms reported Skin: no symptoms reported Past Irzffkq-Xuivwl-Ajlxuk Hx Patient Social History Tobacco Use?: No Use of E-Cig and/or Vaping dev: No Substance use?: No Alcohol Use?: Yes Alcohol Frequency: Once in a while Immunizations Up To Date First/Initial COVID19 Vaccinat: SEPTEMBER 27, 2020 Second COVID19 Vaccination Ralph: OCTOBER 28, 2020 Seasonal Allergies Seasonal Allergies: No Past Medical History Surgery/Hospitalization HX: HX LITHOTRIPSY Surgeries: Yes Nose, Orthopedic Respiratory: Yes Sleep Apnea Currently Using CPAP: No Cardiac: Yes Heart Murmur, High Cholesterol, Hypertension Neurological: No Seizure Disorder Genitourinary: No Prostate Problems, Kidney Stones Gastrointestinal: No Diverticulosis Musculoskeletal: No Endocrine: No HEENT: No Cancer: Yes (SPINAL CANCER) Bone Psychosocial: No Integumentary: No Blood Disorders: No Family Medical History Reviewed Nursing Family Hx Colorectal cancer Cancer Physical Exam Vital Signs Vital Signs - First Documented 05/25/23 05/25/23 06:30 08:07 Temp 36.8 Pulse 57 Resp 16 B/P (MAP) 150/85 (106) Pulse Ox 98 Capillary Refill : Less Than 3 Seconds Height, Weight, BMI Height: '" Weight: lbs. oz. kg; 40.00 BMI Method: General Appearance: WD/WN, mild distress Neck: full range of motion, supple Cardiovascular: regular rate, rhythm, no murmur Respiratory: lungs clear, normal breath sounds Gastrointestinal: non tender, soft Back: normal inspection, no CVA tenderness, no vertebral tenderness Neurologic/Psychiatric: alert, oriented x 3 Skin: normal color, warm/dry Progress/Results/Core Measures Suspected Sepsis SIRS Temperature: Pulse: 57 Respiratory Rate: 16 Laboratory Tests 05/25/23 06:30: White Blood Count 7.1 Blood Pressure 150 /85 Mean: 106 Laboratory Tests 05/25/23 06:30: Creatinine 1.06, Platelet Count 242, Total Bilirubin 0.4 Results/Orders Lab Results Laboratory Tests Test 05/25/23 06:20 05/25/23 06:30 Range/Units Urine Color ORANGE Urine Clarity CLOUDY Urine pH 5.0 5-9 Urine Specific [place] >=1.030 1.016-1.022 Urine Protein 3+ H NEGATIVE Urine Glucose (UA) NEGATIVE NEGATIVE Urine Ketones NEGATIVE NEGATIVE Urine Nitrite NEGATIVE NEGATIVE Urine Bilirubin 1+ H NEGATIVE Urine Urobilinogen 1.0 < = 1.0 MG/DL Urine Leukocyte Esterase NEGATIVE NEGATIVE Urine RBC (Auto) 3+ H NEGATIVE Urine RBC TNTC H /HPF Urine WBC 5-10 H /HPF Urine Crystals PRESENT H /LPF Urine Calcium Oxalate Crystals FEW H /LPF Urine Bacteria MODERATE H /HPF Urine Casts PRESENT /LPF Urine Hyaline Casts 2-5 H /LPF Urine Mucus LARGE H /LPF Urine Culture Indicated YES White Blood Count 7.1 4.3-11.0 10^3/uL Red Blood Count 5.25 4.30-5.52 10^6/uL Hemoglobin 15.6 13.3-17.7 g/dL Hematocrit 46 40-54 % Mean Corpuscular Volume 88 80-99 fL Mean Corpuscular Hemoglobin 30 25-34 pg Mean Corpuscular Hemoglobin Concent 34 32-36 g/dL Red Cell Distribution Width 13.1 10.0-14.5 % Platelet Count 242 130-400 10^3/uL Mean Platelet Volume 9.5 9.0-12.2 fL Immature Granulocyte % (Auto) 1 % Neutrophils (%) (Auto) 63 42-75 % Lymphocytes (%) (Auto) 29 12-44 % Monocytes (%) (Auto) 5 0-12 % Eosinophils (%) (Auto) 1 0-10 % Basophils (%) (Auto) 1 0-10 % Neutrophils # (Auto) 4.5 1.8-7.8 10^3/uL Lymphocytes # (Auto) 2.1 1.0-4.0 10^3/uL Monocytes # (Auto) 0.4 0.0-1.0 10^3/uL Eosinophils # (Auto) 0.1 0.0-0.3 10^3/uL Basophils # (Auto) 0.0 0.0-0.1 10^3/uL Immature Granulocyte # (Auto) 0.1 0.0-0.1 10^3/uL Sodium Level 138 135-145 MMOL/L Potassium Level 3.8 3.6-5.0 MMOL/L Chloride Level 104 98-107 MMOL/L Carbon Dioxide Level 25 21-32 MMOL/L Anion Gap 9 5-14 MMOL/L Blood Urea Nitrogen 19 H 7-18 MG/DL Creatinine 1.06 0.60-1.30 MG/DL Estimat Glomerular Filtration Rate 81 BUN/Creatinine Ratio 18 Glucose Level 115 H 70-105 MG/DL Calcium Level 9.6 8.5-10.1 MG/DL Corrected Calcium 9.2 8.5-10.1 MG/DL Total Bilirubin 0.4 0.1-1.0 MG/DL Aspartate Amino Transf (AST/SGOT) 19 5-34 U/L Alanine Aminotransferase (ALT/SGPT) 28 0-55 U/L Alkaline Phosphatase 92 40-136 U/L C-Reactive Protein High Sensitivity 0.12 0.00-0.50 MG/DL Total Protein 7.5 6.4-8.2 GM/DL Albumin 4.5 3.2-4.5 GM/DL My Orders Orders - HAKAN MCNEIL MD Cbc And Automated Diff (05/25/23 06:38) Comprehensive Metabolic Panel (05/25/23 06:38) Hs C Reactive Protein (05/25/23 06:38) Ua Culture If Indicated (05/25/23 06:38) Ed Iv/Invasive Line Start (05/25/23 06:38) Ns Iv 1000 Ml (Ns Iv 1000 Ml) (05/25/23 06:45) Ondansetron Injection (Ondansetron Inj (05/25/23 06:45) Ct Abd/Pelvis Wo(Kidney Stone) (05/25/23 06:38) Ketorolac Injection (Ketorolac Injection (05/25/23 06:38) Urine Culture (05/25/23 06:20) Fentanyl Injection (Fentanyl Injection (05/25/23 07:44) Hydrocodone/Apap 5/325 Tablet (Hydrocod (05/25/23 07:45) Medications Given in ED Current Medications Medications Dose Ordered Sig/Sasha Route Start Time Stop Time Status Last Admin Dose Admin Acetaminophen/ Hydrocodone Bitart 1 ea ONCE ONCE PO 05/25/23 07:45 05/25/23 07:46 DC 05/25/23 07:57 1 EA Ondansetron HCl 4 mg ONCE ONCE IVP 05/25/23 06:45 05/25/23 06:46 DC 05/25/23 06:45 4 MG Sodium Chloride 1,000 ml @ 0 mls/hr Q0M ONCE IV 05/25/23 06:45 05/25/23 06:46 DC 05/25/23 06:47 0 MLS/HR Vital Signs/I&O 05/25/23 05/25/23 06:30 08:07 Temp 36.8 Pulse 57 68 Resp 16 16 B/P (MAP) 150/85 (106) 138/76 Pulse Ox 98 Capillary Refill : Less Than 3 Seconds Blood Pressure Mean: 106 Progress Note : Progress Note Seen and evaluated. IV, labs including CBC, CMP, CRP and UA ordered. Normal saline 1 L bolus, Zofran 4 mg IV and Toradol [address] abdomen and pelvis without contrast due to concerns of right kidney/ureteral stone ordered. Monitor patient. Differential diagnosis includes kidney stone/ureteral stone with obstruction, hydronephrosis, urinary tract infection, pyelonephritis, other intra-abdominal pathology 0651: Patient to CT. CBC reviewed and is normal. 0715: CT complete. Labs reviewed chemistries grossly normal with negative CRP. UA does show concentration and too numerous to count red cells with mucus consistent with ureteral stone. CT abdomen and pelvis reviewed by me and I do see the mid ureter at least 4 mm ureteral stone on the right with mild hydronephrosis on my interpretation. 0722: Patient is doing better. I will send out prescriptions as noted in discharge instructions and all of those were discussed with the patient. We did discuss Flomax but patient states he does not react well to that so we will hold that. He will call his urologist on Saturday and let them know about the stone. Pending completion of fluids and then we will discharge. 0745: Patient started having some increased pain after urination. Fluids are nearly complete. We will give fentanyl 50 mcg IV now as well as a hydrocodone 5/325 1 tab p.o. now so that we can get some better pain relief. He feels comfortable going home after that. Patient does have a ride discharged home with return precautions. Patient verbalized understanding of instructions and agreement with plan. Patient does have a ride and is calling for it now. Understands that he is not to drive while taking narcotics. Diagnostic Imaging Diagonstic Imaging: CT Plain Films/CT/US/NM/MRI: abdomen, pelvis Comments [facility] [place], [place] NAME: HAKAN VEGA [facility] REC#: [id number] PT STATUS: REG ER : 1965 PHYSICIAN: HAKAN MCNEIL MD ADMIT DATE: 05/25/23/ER Draft Date of Exam:05/25/23 CT ABD/PELVIS WO(KIDNEY STONE) PROCEDURE: CT urinary tract, rule out kidney stone. TECHNIQUE: Multiple contiguous axial images were obtained through the abdomen and pelvis without the use of intravenous contrast. Auto Exposure Controls were utilized during the CT exam to meet ALARA standards for radiation dose reduction. INDICATION: Flank pain, right flank pain, abdominal pain, renal stones. COMPARISON: 05/02/2022. FINDINGS: The visualized lung bases are clear. Tiny hiatal hernia. The unenhanced liver and spleen are unremarkable. The adrenal glands are unremarkable. Mild fatty infiltration of the pancreas. Otherwise, the pancreas is unremarkable. Bilateral renal hypodensities are again identified, appearing similar to the prior examination. The larger of these hypodensities demonstrates Hounsfield units of less than 10. A 0.7 cm calculus is identified within the proximal right ureter with resultant mild right hydronephrosis. Additional punctate 1 mm right renal calculi are present. The mid and distal right ureter are unremarkable. No left-sided hydroureteronephrosis. Mild vascular calcifications without aneurysmal dilatation of the abdominal aorta. Small fat-containing umbilical hernia. The appendix is unremarkable. Urinary bladder is decompressed and therefore not well evaluated. Small fat-containing left inguinal hernia. Mild colonic diverticulosis without CT evidence of diverticulitis. No bowel obstruction or pneumatosis. No significant adenopathy, free air, or free fluid within the abdomen or pelvis. Post surgical changes within the partially visualized thoracic spine. Scattered osseous degenerative changes without acute osseous abnormality. IMPRESSION: 0.7 cm calculus within the proximal right ureter resulting in mild right hydroureteronephrosis. Additional punctate 1 mm right renal calculi. Bilateral renal hypodensities, similar to the prior examination. Though these are technically indeterminate, these are favored to relate to cysts. Additional findings as above. Dictated on workstation # [id number] Dict: 05/25/23708 Trans: 05/25/23724 [id number] Interpreted by: JOSSIE LOO MD Electronically signed by: Departure Impression Primary Impression: Right ureteral stone Disposition: 01 HOME, SELF-CARE Condition: Stable Departure-Patient Inst. Decision time for Depature: 07:23 Referrals: CECIL FLANNERY MD (PCP/Family) Primary Care Physician Patient Instructions: Kidney Stone, Adult ED Add. Discharge Instructions: All discharge instructions reviewed with patient and/or family. Voiced understanding. Take medications as directed. Continue meloxicam as previously prescribed. If you are not taking the prescribed hydrocodone containing pain medicine, you may take Tylenol/acetaminophen 1000 mg every 6-8 hours as needed for pain. Do not take both at the same time as they both have Tylenol/acetaminophen in them. Drink plenty of fluids. Call Dr. Gillespie on Saturday and let them know that you have a 7 mm stone mid ureter on the right. Return for worse pain, fever, vomiting, weakness, breathing problems or other concerns as needed. Do not drive or perform activity that requires mental focus while taking narcotic pain medication. Scripts Ondansetron (Ondansetron Odt) 4 Mg Tab.rapdis 4 MG PO Q6H PRN for NAUSEA/VOMITING, #12 TAB 0 Refills Prov: HAKAN MCNEIL MD 05/25/23 Hydrocodone/Acetaminophen (Hydrocodone-Acetamin 5-325 mg) 5 Mg-325 Mg Tablet 1 TAB PO Q6H PRN for PAIN-MODERATE (5-7) for 7 Days, #12 TAB 0 Refills Prov: HAKAN MCNEIL MD 05/25/23 Cephalexin (Cephalexin) 500 Mg Capsule 500 MG PO BID for 7 Days, #14 CAP 0 Refills Prov: AHKAN MCNEIL MD 05/25/23 Copy Copies To 1: CECIL FLANNERY MD, TIMOTHY D MD May 25, 2023 06:51
[2023-05-25 06:52] LABS: CALCIUM 9.6 MG/DL (8.5-10.1)
[2023-05-25 06:53] LABS: TOTAL PROTEIN 7.5 GM/DL (6.4-8.2)
[2023-05-25 06:55] LABS: BILIRUBIN,TOTAL 0.4 MG/DL (0.1-1.0)
[2023-05-25 06:55] LABS: CLARITY,URINE CLOUDY; COLOR,URINE ORANGE; GLUCOSE, URINE (UA) NEGATIVE (NEGATIVE); KETONES,URINE NEGATIVE (NEGATIVE); NITRITE,URINE NEGATIVE (NEGATIVE); PROTEIN,URINE 3+ (NEGATIVE)
[2023-05-25 06:56] LABS: BACTERIA,URINE MODERATE /HPF; CALCIUM OXALATE CRYSTALS,UR FEW /LPF; LEUKOCYTE ESTERASE ,URINE NEGATIVE (NEGATIVE); RBC,URINE TNTC /HPF
[2023-05-25 06:57] LABS: CREATININE SERUM 1.06 MG/DL (0.60-1.30)
[2023-05-25 06:58] LABS: BILIRUBIN,URINE 1+ (NEGATIVE)
[2023-05-25] MEDS ORDERED: CEPH500C PO (07:25)
[2023-05-25] MEDS ORDERED: ONDA4TAB11 PO (07:25)
[2023-05-25] MEDS ORDERED: ACHD5005 PO (07:25)
--- NOTE | 2023-05-25 07:25 | Diagnostic Imaging Report ---
PROCEDURE: CT urinary tract, rule out kidney stone. TECHNIQUE: Multiple contiguous axial images were obtained through the abdomen and pelvis without the use of intravenous contrast. Auto Exposure Controls were utilized during the CT exam to meet ALARA standards for radiation dose reduction. INDICATION: Flank pain, right flank pain, abdominal pain, renal stones. COMPARISON: 05/02/2022. FINDINGS: The visualized lung bases are clear. Tiny hiatal hernia. The unenhanced liver and spleen are unremarkable. The adrenal glands are unremarkable. Mild fatty infiltration of the pancreas. Otherwise, the pancreas is unremarkable. Bilateral renal hypodensities are again identified, appearing similar to the prior examination. The larger of these hypodensities demonstrates Hounsfield units of less than 10. A 0.7 cm calculus is identified within the proximal right ureter with resultant mild right hydronephrosis. Additional punctate 1 mm right renal calculi are present. The mid and distal right ureter are unremarkable. No left-sided hydroureteronephrosis. Mild vascular calcifications without aneurysmal dilatation of the abdominal aorta. Small fat-containing umbilical hernia. The appendix is unremarkable. Urinary bladder is decompressed and therefore not well evaluated. Small fat-containing left inguinal hernia. Mild colonic diverticulosis without CT evidence of diverticulitis. No bowel obstruction or pneumatosis. No significant adenopathy, free air, or free fluid within the abdomen or pelvis. Post surgical changes within the partially visualized thoracic spine. Scattered osseous degenerative changes without acute osseous abnormality. IMPRESSION: 0.7 cm calculus within the proximal right ureter resulting in mild right hydroureteronephrosis. Additional punctate 1 mm right renal calculi. Bilateral renal hypodensities, similar to the prior examination. Though these are technically indeterminate, these are favored to relate to cysts. Additional findings as above. Dictated by: Dictated on workstation # [id number]
[2023-05-25] MEDS ORDERED: fentaNYL INJECTION 100 MCG/2 ML VIAL IVP STA (07:44)
[2023-05-25] MEDS ORDERED: HYDROcodone/ACETAMINOPHEN 5 MG/325 MG TABLET PO ONE (07:45)
[2023-05-25 08:07] VITALS: BP 138/76
== END 2023-05-25 08:07 | disposition home or self-care (01) ==
LOC: EDUNIT# 06:14 → ER 06:16
DX: N13.2 Hydronephrosis with renal and ureteral calculous obstruction (principal); Z98.890 Other specified postprocedural states
CPT/HCPCS: 36415; 74176; 80053; 81000; 85025; 86141; 87088; 96361; 96374; 96375

== ENCOUNTER 2023-06-25 06:47 | Emergency (ER) | payer MEDICARE ==
[~2023-06-25] VITALS: Ht 172 cm; Wt 99.7 kg
[~2023-06-25 06:47] MED LIST changes: +ACHD5005 PO; +ONDA4TAB11 PO
[2023-06-25] MEDS ORDERED: NALOXONE 0.4 MG/ML 1 ML VIAL IV ONE (07:15)
[2023-06-25] MEDS ORDERED: NALOXONE 2 MG/2 ML SYRINGE IV ONE (07:15)
[2023-06-25 07:45] LABS: COLOR,URINE YELLOW
[2023-06-25 07:46] LABS: BILIRUBIN,URINE NEGATIVE (NEGATIVE); CLARITY,URINE CLEAR; GLUCOSE, URINE (UA) NEGATIVE (NEGATIVE); KETONES,URINE TRACE (NEGATIVE); LEUKOCYTE ESTERASE ,URINE NEGATIVE (NEGATIVE); NITRITE,URINE NEGATIVE (NEGATIVE); PH,URINE 5.5 (5-9); PROTEIN,URINE 1+ (NEGATIVE); RBC,URINE 50-100 /HPF
[2023-06-25 07:47] LABS: BACTERIA,URINE FEW /HPF; SQUAMOUS EPITHELIAL CELL,UR RARE /HPF
[2023-06-25] MEDS ORDERED: KETOROLAC INJ 30 MG/ML VIAL IVP ONE (08:00)
[2023-06-25 08:07] LABS: BASOPHILS # (AUTO) 0.1 10^3/uL (0.0-0.1); BASOPHILS % (AUTO) 1 % (0-10); EOSINOPHILS # (AUTO) 0.1 10^3/uL (0.0-0.3); EOSINOPHILS % (AUTO) 2 % (0-10); HEMATOCRIT 44 % (40-54); HEMOGLOBIN 14.4 g/dL (13.3-17.7); LYMPHOCYTES # (AUTO) 1.8 10^3/uL (1.0-4.0); LYMPHOCYTES % (AUTO) 27 % (12-44); MEAN CORPUSCULAR HEMOGLOBIN 29 pg (25-34); MEAN CORPUSCULAR HGB CONC 33 g/dL (32-36); MEAN CORPUSCULAR VOLUME 88 fL (80-99); MEAN PLATELET VOLUME 9.9 fL (9.0-12.2); MONOCYTES # (AUTO) 0.4 10^3/uL (0.0-1.0); MONOCYTES % (AUTO) 6 % (0-12); NEUTROPHILS # (AUTO) 4.2 10^3/uL (1.8-7.8); NEUTROPHILS % (AUTO) 63 % (42-75); PLATELET COUNT 213 10^3/uL (130-400); WHITE BLOOD COUNT 6.6 10^3/uL (4.3-11.0)
[2023-06-25 08:13] LABS: CALCIUM 9.2 MG/DL (8.5-10.1); CREATININE SERUM 1.04 MG/DL (0.60-1.30)
[2023-06-25] MEDS ORDERED: cefTRIAXone IV/IM 1,000 MG in NS (IVPB) 50 ML 50 ML IV STA (08:16)
--- NOTE | 2023-06-25 08:51 | Diagnostic Imaging Report ---
INDICATION: Tracking of right proximal ureteral stone. TECHNIQUE: 2 supine radiograph of the abdomen 8:50 AM CORRELATION STUDY: Renal colic CT 06/25/2023 FINDINGS: CT imaging demonstrated a right ureteral stone. Correlation CT imaging, barely visualized on radiographs but appears to project just below the right L4 transverse process, 5 mm in size. Overlying bowel gas pattern is mild/moderate stool retention. No overt definite impaction or obstruction. IMPRESSION: 1. A 5 mm calcification appears to project just below the right L4 transverse process. Dictated by: Dictated on workstation # [id number]
--- NOTE | 2023-06-25 09:59 | ED Abdominal Pain ---
General Chief Complaint: Abdominal/GI Problems Stated Complaint: RT FLANK & TESTICLE PX Nursing Triage Note: RIGHT FLANK PAIN. HX OF KIDNEY STONES. Source of Information: Patient, Old Records Exam Limitations: No Limitations History of Present Illness Date Seen by Provider: Jun 25, 2023 Allergies and Home Medications Allergies Coded Allergies: lisinopril (Verified Allergy, Mild, 04/05/22) coughing Patient Home Medication List Aspirin (Aspirin EC) 81 Mg Tablet.dr, 81 MG PO DAILY, (Reported) Entered as Reported by: ROSI BELLE on 04/05/22 0956 Cephalexin (Cephalexin) 500 Mg Capsule, 500 MG PO BID Prescribed by: HAKAN MCNEIL on 02/23/23 1659 Cephalexin (Cephalexin) 500 Mg Capsule, 500 MG PO BID Prescribed by: HAKAN MCNEIL on 05/25/23 0725 Cholecalciferol (Vitamin D3) (Vitamin D3) 125 Mcg Capsule, 125 MCG PO DAILY, (Reported) Entered as Reported by: THADDEUS GARCIA on 07/31/21 1218 Clopidogrel Bisulfate (Clopidogrel) 75 Mg Tablet, 75 MG PO DAILY Prescribed by: RJ RODRÍGUEZ JR, MD on 04/05/22 1152 Hydrocodone/Acetaminophen (Hydrocodone-Acetamin 5-325 mg) 5 Mg-325 Mg Tablet, 1 TAB PO Q6H PRN for PAIN-MODERATE (5-7) Prescribed by: HAKAN MCNEIL on 05/25/23 0726 Levetiracetam (Levetiracetam) 500 Mg Tablet, 500 MG PO BID, (Reported) Entered as Reported by: THADDEUS GARCIA on 07/31/21 1218 Losartan Potassium (Losartan Potassium) 50 Mg Tablet, 50 MG PO DAILY, (Reported) Entered as Reported by: ROSI BELLE on 04/05/22 0956 Meloxicam (Meloxicam) 15 Mg Tablet, 15 MG PO DAILY, (Reported) Entered as Reported by: THADDEUS GARCIA on 07/31/21 1218 Metoprolol Succinate (Metoprolol Succinate) 50 Mg Tab.er.24h, 50 MG PO DAILY Prescribed by: RJ RODRÍGUEZ JR, MD on 04/05/22 1153 Nitroglycerin (Nitroglycerin) 0.4 Mg Tab.subl, 0.4 MG SL PRN PRN for CHEST PAIN (ANGINA) Prescribed by: RJ RODRÍGUEZ JR, MD on 04/05/22 1206 Ondansetron (Ondansetron Odt) 4 Mg Tab.rapdis, 4 MG PO Q6H PRN for NAUSEA/VOMITING Prescribed by: HAKAN MCNEIL on 05/25/23 0725 Pantoprazole Sodium (Pantoprazole Sodium) 40 Mg Tablet.dr, 40 MG PO DAILY, (Reported) Entered as Reported by: ROSI BELLE on 04/05/22 0956 Rosuvastatin Calcium (Rosuvastatin Calcium) 20 Mg Tablet, 20 MG PO DAILY, (Reported) Entered as Reported by: ROSI BELLE on 04/05/22 0956 Terazosin HCl (Terazosin HCl) 5 Mg Capsule, 5 MG PO BID, (Reported) Entered as Reported by: THADDEUS GARCIA on 07/31/21 1218 Topiramate (Topiramate) 25 Mg Tablet, 25 MG PO BID, (Reported) Entered as Reported by: ROSI BELLE on 04/05/22 0956 Trazodone HCl (Trazodone HCl) 150 Mg Tablet, 150 MG PO HS, (Reported) Entered as Reported by: THADDEUS GARCIA on 07/31/21 1218 Zolpidem Tartrate (Ambien) 10 Mg Tablet, 10 MG PO HS, (Reported) Entered as Reported by: THADDEUS GARCIA on 07/31/21 1218 Past Choywyz-Anrgyc-Cxtbsm Hx Patient Social History Tobacco Use?: No Substance use?: No Alcohol Use?: Yes Alcohol Frequency: Once in a while Immunizations Up To Date First/Initial COVID19 Vaccinat: SEPTEMBER 27, 2020 Second COVID19 Vaccination Ralph: OCTOBER 28, 2020 Seasonal Allergies Seasonal Allergies: No Past Medical History Surgery/Hospitalization HX: HX LITHOTRIPSY Surgeries: Yes Nose, Orthopedic Respiratory: Yes Sleep Apnea Currently Using CPAP: No Cardiac: Yes Heart Murmur, High Cholesterol, Hypertension Neurological: No Seizure Disorder Genitourinary: No Prostate Problems, Kidney Stones Gastrointestinal: No Diverticulosis Musculoskeletal: No Endocrine: No HEENT: No Cancer: Yes (SPINAL CANCER) Bone Psychosocial: No Integumentary: No Blood Disorders: No Family Medical History Colorectal cancer Cancer Physical Exam Vital Signs Vital Signs - First Documented 06/25/23 06:50 Temp 36.2 Pulse 62 Resp 16 B/P (MAP) 131/76 (94) Pulse Ox 98 O2 Delivery Room Air Capillary Refill : Less Than 3 Seconds Height/Weight/BMI Height: '" Weight: lbs. oz. kg; 33.00 BMI Method: Progress/Results/Core Measures Results/Orders Lab Results Laboratory Tests Test 06/25/23 06:58 06/25/23 07:27 Range/Units White Blood Count 6.6 4.3-11.0 10^3/uL Red Blood Count 4.93 4.30-5.52 10^6/uL Hemoglobin 14.4 13.3-17.7 g/dL Hematocrit 44 40-54 % Mean Corpuscular Volume 88 80-99 fL Mean Corpuscular Hemoglobin 29 25-34 pg Mean Corpuscular Hemoglobin Concent 33 32-36 g/dL Red Cell Distribution Width 13.1 10.0-14.5 % Platelet Count 213 130-400 10^3/uL Mean Platelet Volume 9.9 9.0-12.2 fL Immature Granulocyte % (Auto) 1 % Neutrophils (%) (Auto) 63 42-75 % Lymphocytes (%) (Auto) 27 12-44 % Monocytes (%) (Auto) 6 0-12 % Eosinophils (%) (Auto) 2 0-10 % Basophils (%) (Auto) 1 0-10 % Neutrophils # (Auto) 4.2 1.8-7.8 10^3/uL Lymphocytes # (Auto) 1.8 1.0-4.0 10^3/uL Monocytes # (Auto) 0.4 0.0-1.0 10^3/uL Eosinophils # (Auto) 0.1 0.0-0.3 10^3/uL Basophils # (Auto) 0.1 0.0-0.1 10^3/uL Immature Granulocyte # (Auto) 0.1 0.0-0.1 10^3/uL Sodium Level 141 135-145 MMOL/L Potassium Level 4.0 3.6-5.0 MMOL/L Chloride Level 107 98-107 MMOL/L Carbon Dioxide Level 23 21-32 MMOL/L Anion Gap 11 5-14 MMOL/L Blood Urea Nitrogen 19 H 7-18 MG/DL Creatinine 1.04 0.60-1.30 MG/DL Estimat Glomerular Filtration Rate 83 BUN/Creatinine Ratio 18 Glucose Level 130 H 70-105 MG/DL Calcium Level 9.2 8.5-10.1 MG/DL Urine Color YELLOW Urine Clarity CLEAR Urine pH 5.5 5-9 Urine Specific Randolph >=1.030 1.016-1.022 Urine Protein 1+ H NEGATIVE Urine Glucose (UA) NEGATIVE NEGATIVE Urine Ketones TRACE H NEGATIVE Urine Nitrite NEGATIVE NEGATIVE Urine Bilirubin NEGATIVE NEGATIVE Urine Urobilinogen 1.0 < = 1.0 MG/DL Urine Leukocyte Esterase NEGATIVE NEGATIVE Urine RBC (Auto) 3+ H NEGATIVE Urine RBC 50-100 H /HPF Urine WBC 5-10 H /HPF Urine Squamous Epithelial Cells RARE /HPF Urine Crystals NONE /LPF Urine Bacteria FEW H /HPF Urine Casts NONE /LPF Urine Mucus SMALL H /LPF Urine Culture Indicated YES Micro Results Microbiology 06/25/23 Urine Culture - Preliminary, Resulted My Orders Orders - ESAU FOLEY MD Ua Culture If Indicated (06/25/23 07:13) Urine Culture (06/25/23 07:27) Basic Metabolic Panel (06/25/23 07:55) Cbc And Automated Diff (06/25/23 07:55) Ketorolac Injection (Ketorolac Injection (06/25/23 08:00) Ct Abd/Pelvis Wo(Kidney Stone) (06/25/23 07:56) Ceftriaxone Iv/Im (Ceftriaxone Iv/Im) (06/25/23 08:16) Abdomen/Kub 1view (06/25/23 08:37) Ondansetron Injection (Ondansetron Inj (06/25/23 10:00) Morphine Injection (Morphine Injection (06/25/23 10:27) Ct Abd/Pelvis Wo(Kidney Stone) (06/25/23 ) Oxycodone/Apap 5/325mg Tablet (Oxycodon (06/25/23 12:30) Medications Given in ED Current Medications Medications Dose Ordered Sig/Sasha Route Start Time Stop Time Status Last Admin Dose Admin Ketorolac Tromethamine 15 mg ONCE ONCE IVP 06/25/23 08:00 06/25/23 08:01 DC 06/25/23 08:04 15 MG Ondansetron HCl 8 mg ONCE ONCE IVP 06/25/23 10:00 06/25/23 10:01 DC 06/25/23 10:05 8 MG Vital Signs/I&O 06/25/23 06:50 Temp 36.2 Pulse 62 Resp 16 B/P (MAP) 131/76 (94) Pulse Ox 98 O2 Delivery Room Air Blood Pressure Mean: 94 Departure Impression Primary Impression: Right ureteral stone Additional Impression: Urinary tract infection Qualified Codes: N39.0 - Urinary tract infection, site not specified Disposition: 01 HOME, SELF-CARE Condition: Improved Departure-Patient Inst. Decision time for Depature: 12:19 Referrals: CECIL FLANNERY MD (PCP/Family) Primary Care Physician Patient Instructions: Kidney Stone, Adult ED, Urinary Tract Infection, Adult ED Add. Discharge Instructions: Please bring these discharge instructions with you to your follow-up appointments. Please contact your urologist office today to request prompt follow-up. You have an obstructing ureteral stone in the presence of probable urinary tract infection. This should be addressed promptly with follow-up to your urologist. The ureteral stone was not visible on both CT and x-ray in the ER today. Drink plenty of clear liquids to stay well-hydrated. Continue antibiotic therapy until otherwise instructed by your urologist or primary care provider. A urine culture is being performed in the lab. Results should be available after 48 hours. Please contact one of your doctors to review urine culture results to be sure you are taking the best antibiotic for the bacteria grown. You may take Percocet as prescribed for pain. Percocet may cause drowsiness, so use with caution. Do not drive, operate machinery, or make important decisions while on this medication. Percocet may also cause constipation, see may wish to use a stool softener such as Colace while taking Percocet. Use the Zofran (ondansetron) as prescribed for nausea or vomiting. Return to care if you have worsening symptoms despite following these instructions or if you develop additional symptoms such as fever. All discharge instructions reviewed with patient and/or family. Voiced understanding. Scripts Cefdinir (Cefdinir) 300 Mg Capsule 300 MG PO BID, #20 CAP 0 Refills Prov: ESAU FOLEY MD 06/25/23 Ondansetron (Ondansetron Odt) 4 Mg Tab.rapdis 4 MG SL Q4H PRN for NAUSEA/VOMITING, #10 TAB 1 Refill Prov: ESAU FOLEY MD 06/25/23 Oxycodone HCl/Acetaminophen (Percocet 5-325 mg Tablet) 1 Each Tablet 1-2 TAB PO Q4H PRN for PAIN-MODERATE TO SEVERE MDD 6 TABS, #20 TAB Prov: ESAU FOLEY MD 06/25/23 ESAU FOLEY MD Jun 25, 2023 09:59
[2023-06-25] MEDS ORDERED: ONDANSETRON INJECTION 4 MG/2 ML (SDV) IVP ONE (10:00)
[2023-06-25] MEDS ORDERED: morphine INJ 10 MG/ML 1ML (SYR OR VIAL) IVP STA (10:27)
[2023-06-25] MEDS ORDERED: OXYC1TAB87 PO (12:25)
[2023-06-25] MEDS ORDERED: ONDA4TAB11 SL (12:25)
[2023-06-25] MEDS ORDERED: CEFD300C3 PO (12:25)
[2023-06-25] MEDS ORDERED: oxyCODONE/ACETAMINOPHEN 5/325MG TABLET PO ONE (12:30)
[2023-06-25] MEDS ORDERED: GLYCOPYRROLATE INJ 0.2 MG/ML 2 ML VIAL IV ONE (12:30)
[2023-06-25 12:45] VITALS: BP 143/93
--- NOTE | 2023-06-26 10:55 | Diagnostic Imaging Report ---
PROCEDURE: CT urinary tract, rule out kidney stone. TECHNIQUE: Multiple contiguous axial images were obtained through the abdomen and pelvis without the use of intravenous contrast. Auto Exposure Controls were utilized during the CT exam to meet ALARA standards for radiation dose reduction. INDICATION: Right flank pain. COMPARISON: Prior CT from 05/25/2023. FINDINGS: The lung bases are clear. The liver and gallbladder are unremarkable. The pancreas and spleen are unremarkable. No adrenal mass is identified. Renal cortical low-attenuation lesions are again noted, suggestive of cysts. There is an approximately 5 mm calculus located at the junction of the proximal and mid right ureter. This is in a similar location to the calculus noted on the CT study of 1 month earlier. Mild to moderate right-sided hydroureteronephrosis is seen. The ureter distal to this level is decompressed. The left ureter is unremarkable. No definite intrarenal calculi are seen. The aorta is calcified but nonaneurysmal. The bowel loops are of normal caliber. There is no obstruction. There is diverticulosis throughout the colon, greatest involving the sigmoid, but no evidence of acute diverticulitis. The appendix is unremarkable. There is no ascites. The bladder is decompressed. The prostate is unremarkable. There is a fat-containing left inguinal hernia. IMPRESSION: 1. Bilateral renal cysts. There is a 5 mm calculus at the junction of the proximal and mid right ureter producing mild to moderate hydroureteronephrosis. This is similar to the exam of 1 month earlier. 2. Uncomplicated diverticulosis. 3. Fat-containing umbilical hernia. 4. Fat-containing left inguinal hernia. Dictated by: Dictated on workstation # [id number]
== END 2023-06-25 12:45 | disposition home or self-care (01) ==
LOC: EDUNIT# 06:47 → ER 06:50
DX: N20.1 Calculus of ureter (principal); N39.0 Urinary tract infection, site not specified; Z98.890 Other specified postprocedural states
CPT/HCPCS: 36415; 74018; 74176; 80048; 81000; 85025; 87088